=== PATIENT | female | born 1985 | race Caucasian/White ===

== ENCOUNTER → 2018-01-12 | Outpatient (CLI) | payer BC ==
--- NOTE | 2018-01-12 14:34 | RAD ---
Thyroid ultrasound 01/12/2018 Indication: Possible thyromegaly on exam Comparison study: None Discussion: Ultrasound evaluation of the thyroid gland was performed. Static images were submitted to PACS. The right thyroid measures 5.0 x 1.2 x 1.2 cm. The left thyroid measures 4.8 x 1.3 x 1.0 cm. Thyroid isthmus measures 0.4 cm in thickness. No focal mass is, nodules, or cysts are identified. Blood flow thyroid gland is unremarkable. Impression: Normal sonographic appearance of the thyroid gland
== END | disposition home or self-care (01) ==
LOC: US 13:44
PROVIDERS: ATTEND Family Medicine
DX: E03.8 Other specified hypothyroidism (principal); E04.9 Nontoxic goiter, unspecified
CPT/HCPCS: 76536